=== PATIENT | male | born 1965 | race Caucasian/White ===

== ENCOUNTER 2019-09-17 19:37 | Inpatient (IN) | payer SELFPAY ==
[2019-09-17] MEDS ORDERED: Ondansetron PF 4 MG/2 ML Vial ONE ×2 (20:03→20:23)
[2019-09-17 20:08] LABS: Hemoglobin 14.7 g/dL (14.0-18.0); Mean Corpuscular HGB CONC 34.3 g/dL (32.0-36.0); Mean Corpuscular Hemoglobin 30.3 pg (27.0-31.0); Mean Corpuscular Volume 88.4 fL (78.0-98.0); Platelet Count 109 thou/uL (130-400); RBC Distribution Width 12.4 % (11.5-14.5); Red Blood Cell (RBC) Count 4.84 mill/uL (4.70-6.10); White Blood Cell (WBC) Count 12.2 thou/uL (4.8-10.8)
[2019-09-17 20:18] LABS: Band 22 % (5-11); Dohle Bodies SLIGHT; Lymphocytes 4 % (21-51); MDiff Complete? YES; Monocytes 6 % (0-10); Neutrophil 67 % (42-75); Platelet Morphology Comment Appears Decreased; RBC Morphology Normal; Reactive Lymphocytes 1 % (0-10); Toxic Granulation SLIGHT; Vacuoles SLIGHT
[2019-09-17 20:20] LABS: Bacteria/HPF 3+ HPF (None Seen); Bilirubin Negative (Negative); Blood, Urine 2+ (Negative); Clarity Turbid (Clear); Glucose, Urine (Dipstick) 50 mg/dL (Negative); Leukocyte 250 Leu/uL (Negative); Nitrite Negative (Negative); Protein, Urine (Dipstick) 100 mg/dL (Neg-Trace); RBC/HPF 0-3 HPF (0-3); Squamous Epithelial 0-3 HPF (0-3); Urobilinogen Normal mg/dL (Less than 2); WBC/HPF Greater than 50 HPF (0-3)
[2019-09-17 20:22] LABS: ALT (SGPT) 49 U/L (8-55); AST (SGOT) 54 U/L (5-34); Albumin 3.5 g/dL (3.5-5.0); Alkaline Phosphatase 98 U/L (40-110); Anion Gap 17 mmol/L (10-20); BUN (Urea Nitrogen) 58 mg/dL (8.4-25.7); Calc. Creatinine Clearance 0 mL/min (70-130); Calcium 8.7 mg/dL (7.8-10.44); Carbon Dioxide 21 mmol/L (22-29); Chloride 93 mmol/L (98-107); Estimated GFR-MDRD 18; Globulin 3.7 g/dL (2.4-3.5); Glucose 225 mg/dL (70-105); Potassium 3.6 mmol/L (3.5-5.1); Protein, Total 7.2 g/dL (6.0-8.3); Sodium 127 mmol/L (136-145)
[2019-09-17] MEDS ORDERED: Acetaminophen 500 MG TAB ONE (20:34)
--- NOTE | 2019-09-17 21:39 | RAD ---
ONE VIEW CHEST: 09/17/19 HISTORY: Abdominal pain and gastroesophageal reflux. COMPARISON: None available. FINDINGS: The cardiac silhouette is magnified by projection. There is increased density seen in a left paramed iastinal location which could be related to tortuosity of the thoracic aorta, but CT thorax is recomm ended for further evaluation of this finding. Pulmonary vasculature is within normal limits and the l ungs are clear. Degenerative changes are seen in the spine. IMPRESSION: Increased density seen within the left paramediastinal location which overlies the region of the thor acic aorta. This could be related to tortuosity of the thoracic aorta, but a paramediastinal mass le cierra could not be entirely excluded. CT scan thorax with IV contrast is recommended for further evalu ation. POS: [facility]
--- NOTE | 2019-09-17 23:07 | CT ---
NONCONTRAST CT ABDOMEN AND PELVIS: 09/17/19 HISTORY: Four days of nausea with abdominal pain in lower quadrants. COMPARISON: None. FINDINGS: There is moderate right hydronephrosis with a calculus in the region of the right UPJ which measures 12 mm x 7 mm. There is adjacent perinephric stranding on the right. No left renal or ureteral calculu s is seen. The urinary bladder is decompressed, but otherwise grossly normal in appearance. Dependent atelectasis is present at each lung base. Lack of intravenous contrast limits sensitivity for evaluation of the parenchymal organs. However, th e spleen, pancreas, and bilateral adrenal glands as well as left kidney demonstrate a grossly normal nonenhanced CT appearance. The liver is enlarged measuring at least 19 cm in craniocaudal dimensions but otherwise demonstrates a grossly normal nonenhanced CT appearance. The appendix is visualized and normal in caliber. Loops of small bowel are also normal in caliber. Degenerative changes are seen in the spine. There is a wedge shaped compression fracture involving T1 2 vertebral body of indeterminate age with approximately 50% loss of height anteriorly. There trace g rade I anterolisthesis of L4 on L5 related to prominent facet hypertrophic changes. IMPRESSION: 1. Obstructing right UPJ calculus measuring 12 mm x 7 mm with resultant moderate hydronephrosis and right perinephric stranding. 2. Mild hepatomegaly. POS: [facility]
[2019-09-17] MEDS ORDERED: Acetaminophen 325 MG TAB PO PRN (23:39)
[2019-09-18 00:06] LABS: Hemoglobin A1c 6.8 % (4.0-6.0)
[2019-09-18 00:19] LABS: INR-International Normal Ratio 1.4; PTT 37.8 SEC (22.9-36.1); Prothrombin Time 16.7 SEC (12.0-14.7)
[2019-09-18] MEDS ORDERED: HumaLOG 300 UNITS/3 ML VIAL SC PRN (01:20)
[2019-09-18] MEDS ORDERED: Dextrose 5% in Water 1,000 ML IV PRN (01:20)
[2019-09-18] MEDS ORDERED: Dextrose 50% Abboject 50 ML SYRINGE SLOW IVP PRN (01:20)
[2019-09-18 01:33] VITALS: BMI 33.5
[2019-09-18] MEDS: Sodium Chloride 0.9% 1,000 ML IV SCH ×4 (01:51→23:39)
[2019-09-18] MEDS: cefTRIAXone\\ROCEPHIN 2 GM in Sodium Chloride 0.9% 100 ML IVPB SCH ×2 (01:58→23:52)
[2019-09-18] MEDS ORDERED: Vancomycin 1.5 GRAM/300 ML BAG 1.5 GM in Premix Bag 1 BAG IVPB SCH (02:15)
--- NOTE | 2019-09-18 02:57 | PDOC.FPRHP ---
- History of Present Illness Chief Complaint: ESRD, N/V History of Present Illness: Pt is a 53 yo male without significant PMH who presents with a few day history of difficulty urinating, decreased urination, nausea, diarrhea, chills w/o fever. He states he is unsure what precipitated his symptoms so he decided to be seen in the emergency department. He also endorsed a decreased appetite but was continue PO intake, 1 L of water per day. He denied abdominal, back, flank pain. He took tylenol for his fever. He does normally drink 3-4 sodas per day. Difficult to obtain story even with sliver cutter as pt is poor historian, does not elaborate. He has no PCP. ED Course: In the emergency department pt was found to be fevrile, tachycardic in sepsis. CT scan revealed a R stone obstructing the ureter, creatinine of 3.53, BUN 58. UA had bacteria, WBC's, protein, and blood. Lactic wnl. - Allergies/Adverse Reactions Allergies Allergy/AdvReac Type Severity Reaction Status Date / Time No Known Allergies Allergy Verified 09/18/19 01:29 - Home Medications Medication Instructions Recorded Confirmed Type No Known 09/18/19 09/18/19 History - History PMHx: none PSHx: none FHx: none Social: drinks 3 beers daily, no drug use, no tobacco - Review of Systems General: reports: fever/chills, weight/appetite/sleep changes ENT: denies: nasal congestion, rhinorrhea Respiratory: reports: shortness of breath. denies: cough, congestion Cardiovascular: denies: chest pain, palpitation, edema Gastrointestinal: reports: diarrhea. denies: nausea, vomiting, constipation Genitourinary: reports: polyuria. denies: incontinence, dysuria Skin: denies: rashes, lesions Neurological: denies: numbness, syncope - Vital signs BP: 121/72 HR: 122 -> 94 RR: 20 Tmax: 102.8 Pox: 96% on RA Wt: 72.6 kg - Physical Exam Constitutional: NAD, awake, alert and oriented Neck: FROM, trachea midline Heart: RRR, normal S1/S2, no edema Lungs: CTAB, no respiratory distress, good air movement, no wheezing Abdomen: soft, non-tender, bowel sounds present, no masses/distention -Abdomen: CVA tenderness right Neurological: no focal deficit, CN II-XII intact Skin: no rash/lesions Heme/Lymphatic: no unusual bruising or bleeding, no purpura, no petechia Psychiatric: normal mood and affect, good judgment and insight FMR H&P: Results - Labs Result Diagrams: 09/18/19 03:39 09/18/19 03:39 Lab results: WBC 12.2 thou/uL (4.8-10.8) H 09/17/19 19:52 Hgb 14.7 g/dL (14.0-18.0) 09/17/19 19:52 Hct 42.8 % (42.0-52.0) 09/17/19 19:52 MCV 88.4 fL (78.0-98.0) 09/17/19 19:52 Plt Count 109 thou/uL (130-400) L 09/17/19 19:52 Band Neuts % (Manual) 22 % (5-11) H 09/17/19 19:52 Sodium 127 mmol/L (136-145) L 09/17/19 19:52 Potassium 3.6 mmol/L (3.5-5.1) 09/17/19 19:52 Chloride 93 mmol/L (98-107) L 09/17/19 19:52 Carbon Dioxide 21 mmol/L (22-29) L 09/17/19 19:52 BUN 58 mg/dL (8.4-25.7) H 09/17/19 19:52 Creatinine 3.53 mg/dL (0.7-1.3) H 09/17/19 19:52 Glucose 225 mg/dL (70-105) H 09/17/19 19:52 Lactic Acid 1.6 mmol/L (0.5-2.2) 09/17/19 20:45 Calcium 8.7 mg/dL (7.8-10.44) 09/17/19 19:52 Total Bilirubin 1.0 mg/dL (0.2-1.2) 09/17/19 19:52 AST 54 U/L (5-34) H 09/17/19 19:52 ALT 49 U/L (8-55) 09/17/19 19:52 Alkaline Phosphatase 98 U/L (40-110) 09/17/19 19:52 Serum Total Protein 7.2 g/dL (6.0-8.3) 09/17/19 19:52 Albumin 3.5 g/dL (3.5-5.0) 09/17/19 19:52 Urine Ketones Negative mg/dL (Negative) 09/17/19 20:00 Urine Blood 2+ (Negative) A 09/17/19 20:00 Urine Nitrite Negative (Negative) 09/17/19 20:00 Ur Leukocyte Esterase 250 Gemma/uL (Negative) A 09/17/19 20:00 Urine RBC 0-3 HPF (0-3) 09/17/19 20:00 Urine WBC Greater than 50 HPF (0-3) A 09/17/19 20:00 Ur Squamous Epith Cells 0-3 HPF (0-3) 09/17/19 20:00 Urine Bacteria 3+ HPF (None Seen) A 09/17/19 20:00 - EKG Interpretation EKG: NSR, L atrial enlargement, incomplete R BBB - Radiology Interpretation Chest x-ray Status: report reviewed by me (Increased density L paramediastinum - recommend ct follow up) CT scan - abdomen Status: report reviewed by me (12 mm X 7 mm right UPJ calculus with moderate hydronephrosis and perinephric stranding) FMR H&P: A/P - Problem List (1) Incomplete RBBB Current Visit: Yes Status: Acute Code(s): I45.10 - UNSPECIFIED RIGHT BUNDLE- BRANCH BLOCK (2) Sepsis Current Visit: Yes Status: Acute Code(s): A41.9 - SEPSIS, UNSPECIFIED ORGANISM Qualifiers: Severe sepsis acute organ dysfunction type: acute renal failure (3) Nephrolithiasis Current Visit: Yes Status: Acute (4) Acute kidney failure Current Visit: Yes Status: Acute - Plan Pt is a 53 yo without primary care follow up/no significant PMH who presents for sepsis 2/2 nephrolithiasis: # Nephrolithiasis # Sepsis - fever, tachycardia # LINDA CT abdomen revealed a stone obstructing R kidney cause hydronephrosis. Creatinine 3.53, BUN 58 - tylenol prn pain - Urology consulted, switched abx to ceftriaxone, vanc. Will see pt in am and take for stone removal. Appreciate rec's. - Nephro consult, call in am - Fluids 150 mls/hr # Hyponatremia Na 127 - pending urine Na, urine creatinine # L Paramediastinal Density - needs follow up with CT scan when kidneys can handle contrast - pulm consult, call in am # Elevated BG - a1c pending # Needs PCP Diet: NPO Fluids: NS 150 mls/hr VTE SCDs Code: Full Dispo: > 2 day stay, CU FMR H&P: Upper Level - Plan Date/Time: 09/18/19 0257 IPlacido MD, have evaluated this patient and agree with findings/plan as outlined by property management intern resident. Pertinent changes/additions are listed here. Oswaldo Eugene is a 53 year old M with no known PMH who presented to the ED with a 4 day history of nausea, increased urinary frequency and dysuria. Associated fever, chills. Denies any abdominal pain. No history of UTI. Symptoms have been constant and he had not tried any intervention to improve symptoms. He has not seen a doctor in many years and takes no medications. When he arrives to the ED, he was febrile with Tmax of 102.2, HR got as high as 122, BP 111/63, O2 sat 96% on RA, RR 18. Labs were significant for UA with 250 leuks, nitrite neg, >50 WBC, 2+ blood, 3+ bacteria. Lactic acid 1.6, WBC 12.2 with 22% bands, BUN 58, Cr 3.53, Na 127, K 3.6, Gluc 225. EKG showed NSR with incomplete RBBB. CXR showed increased density in the left paramediastinal location recommending CT chest with contrast to r/o mass. CT abd stone protocol showed 12 mm X 7 mm right UPJ calculus with moderate hydronephrosis and perinephric stranding, no other stones. In the ED, pt was given 2 L NS, IV Levaquin, tylenol, zofran. IVFs and tylenol normalized vitals in ED. On exam, pt was nontoxic, abdomen soft NT, but he did have R CVAT, lungs CTAB, cardiac RRR no murmurs. Pt met sepsis criteria initially in ED with elevated WBC count , tachycardia and fever. Admitting patient to IMCU for close monitoring due to sepsis 2/2 complicated UTI. Starting rocephin and vancomycin. Consulted Dr. Vega upon admission, who stated that she will put patient on OR schedule for morning for stone extraction and possible stent placement. Recommended IVFs NS @ 150 ml/hr. Holding anticoagulation until after procedure. Zofran for nausea. IVFs for hyponatremia. Low Na likely 2/2 kidney injury, will check Ur Na and Ur Osm to r/o alternative causes. If patient shows improvement in terms of kidney function during this stay, will consider CT with IV contrast to work up paramediastinal density seen on CXR. Anticipate LINDA to improve after stone extraction. Anticipate hospital stay > 48 hours. Please see property management intern note above for full H&P, which I have reviewed and agree with. Addendum - Attending - Attending Attestation Date/Time: 09/18/19 0603 I personally evaluated the patient and discussed the management with Dr. Saldana I agree with the History, Examination, Assessment and Plan documented above with any addition or exceptions noted below - 53 yo male with no significant history presented with 4 day h/o nausea, abdominal pain and difficulty urinating. Denies fever/chills. Endorses decreased appetite. PMH/PSH/Meds/SH reviewed and agree with resident's documentation. T 102.8 (in ER) Tn99.5 P90 BP 110/72 RR17 100% RA Exam repeated by me and agree with resident's findings. Labs: WBC=12.2, H/H=14.7/42.8, Ulk=098, Diff- 67N/22B/4L, Gp=701, K= 3.6, Cl=93, Co2=21, BUN/Cr=58/3.53, Ggbk=795, lactic acid=1.6, AST/ALT=54/49, U/ A- 100 prot, 2+ blood, (+)Leuk est, WBC>50, 3+bact; CT abd- mod R hydronehrosis with calculus at R UPJ; adjacent perinehric stranding, calculus 12x7mm. A/P: 1) Sepsis secondary to complicated UTI - admit to IMCU; continue IVF and abx; blood and urine cultures pending, 2) Obstructing urinary calculus - urology consulted and plans for procedure in AM; appreciate assistance with patient; 3) Acute renal failure most likely secondary to post-obstructive uropathy - continue IVF and monitor renal function; nephrology consulted. 4) Hyperglycemia - random glucose>200- consistent with newly diagnosed DM- monitor accuchecks; will need diabetic education
[2019-09-18 04:15] LABS: ALT (SGPT) 44 U/L (8-55); AST (SGOT) 48 U/L (5-34); Albumin 2.8 g/dL (3.5-5.0); Alkaline Phosphatase 81 U/L (40-110); Anion Gap 14 mmol/L (10-20); BUN (Urea Nitrogen) 56 mg/dL (8.4-25.7); Bilirubin, Total 0.6 mg/dL (0.2-1.2); Calc. Creatinine Clearance 35 mL/min (70-130); Calcium 7.5 mg/dL (7.8-10.44); Carbon Dioxide 19 mmol/L (22-29); Chloride 99 mmol/L (98-107); Estimated GFR-MDRD 22; Glucose 185 mg/dL (70-105); Potassium 3.6 mmol/L (3.5-5.1); Protein, Total 5.8 g/dL (6.0-8.3); Sodium 128 mmol/L (136-145)
[2019-09-18 05:44] LABS: Band 11 % (5-11); Hemoglobin 12.5 g/dL (14.0-18.0); Lymphocytes 13 % (21-51); MDiff Complete? YES; Mean Corpuscular HGB CONC 34.4 g/dL (32.0-36.0); Mean Corpuscular Hemoglobin 30.8 pg (27.0-31.0); Mean Corpuscular Volume 89.6 fL (78.0-98.0); Mean Platelet Volume 10.2 fL (7.4-10.4); Monocytes 2 % (0-10); Neutrophil 74 % (42-75); Platelet Count 80 thou/uL (130-400); Platelet Morphology Comment Appears Decreased; RBC Distribution Width 12.4 % (11.5-14.5); Red Blood Cell (RBC) Count 4.07 mill/uL (4.70-6.10); White Blood Cell (WBC) Count 8.5 thou/uL (4.8-10.8)
--- NOTE | 2019-09-18 06:00 | PDOC.FM ---
- Subjective Subjective: Pt states he had some abd pain overnight in lower quadrant. Denies N/V. - Objective MAR Reviewed: Yes Vital Signs & Weight: Vital Signs (12 hours) Temp 09/18/19 04:02 98.4 F 09/18/19 01:14 99.5 F Weight Weight 85.82 kg Most Recent Monitor Data Heart Rate from ECG 86 NIBP 104/58 NIBP BP-Mean 73 Respiration from ECG 23 SpO2 100 I&O: 09/16/19 09/17/19 09/18/19 06:59 06:59 06:59 Intake Total 769 Output Total 750 Balance 19 Result Diagrams: 09/18/19 03:39 09/18/19 03:39 Phys Exam - Physical Examination Constitutional: NAD HEENT: moist MMs, sclera anicteric Neck: no JVD, full ROM Respiratory: no wheezing, no rales, no rhonchi, clear to auscultation bilateral Cardiovascular: RRR, no rub Gastrointestinal: soft, positive bowel sounds R CVA T. Musculoskeletal: no edema, pulses present Neurological: non-focal, moves all 4 limbs Psychiatric: normal affect, A&O x 3 Skin: no rash, normal turgor, cap refill <2 seconds Dx/Plan (1) Sepsis Code(s): A41.9 - SEPSIS, UNSPECIFIED ORGANISM Status: Acute Qualifiers: Severe sepsis acute organ dysfunction type: acute renal failure (2) Pyelonephritis Code(s): N12 - TUBULO-INTERSTITIAL NEPHRITIS, NOT SPCF ACUTE OR CHRONIC Status: Acute (3) Hydronephrosis due to obstruction of ureter Code(s): N13.2 - HYDRONEPHROSIS WITH RENAL AND URETERAL CALCULOUS OBSTRUCTION Status: Acute (4) Acute kidney failure Status: Acute (5) Incomplete RBBB Code(s): I45.10 - UNSPECIFIED RIGHT BUNDLE-BRANCH BLOCK Status: Acute (6) Nephrolithiasis Status: Acute - Plan Plan: Pt is a 53 yo without primary care follow up/no known PMH who presents for sepsis 2/2 nephrolithiasis: # Nephrolithiasis - Right UPJ calculis 12 X 7 mm size - Urology consulted, appreciate recommendations # Sepsis 2/2 complicated UTI/pyelonephritis - fever, tachycardia #Pyelonephritis - R CVA T - Evidence of large obstructing stone on R UPJ, possible septic stone. # LINDA CT abdomen revealed a stone obstructing R kidney cause hydronephrosis. Creatinine 3.53, BUN 58 - tylenol prn pain - Urology consulted, switched abx to ceftriaxone, vanc. Will see pt in am and take for stone removal. Appreciate rec's. 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 Once renal function improves will order CT w contrast of chest. # L Paramediastinal Density - needs follow up with CT scan when kidneys can handle contrast - pulm consult, as pt in IMCU. Likely to transfer out of IMCU once stone extracted. # Elevated BG, new diagnosis of DM II - a1c 6.8, new diagnosis of DM - Will discuss addition of metformin if pt's LINDA resolves before admission. - ACHS accuchecks, mild SSI # Needs PCP Diet: NPO Fluids: NS 150 mls/hr VTE SCDs Code: Full Dispo: > 2 day stay, CU
--- NOTE | 2019-09-18 07:53 | RAD ---
Abdomen one view HISTORY: Renal stone. COMPARISON: CT 09/17/2019. FINDINGS: Large amount of gas throughout the bowel obscures renal outlines. A very subtle vertically oriented oval opacity lateral to the L2-3 disc space is in the expected location of the right UPJ calculus on recent CT, although the relative density is not significantly different from the surround ing soft tissues, and this cannot be confidently designated as the obstructing stone. Dystrophic calcification within the right lateral abdomen. Degenerative changes lumbar spine and hips . IMPRESSION: Right ureteropelvic junction calculus, while possibly visualized on this exam, cannot be confidently localized.
--- NOTE | 2019-09-18 08:00 | RAD ---
XR Chest 1 View HISTORY: Preoperative chest x-ray COMPARISON: Previous day FINDINGS: The heart is prominent but stable. Increased density in the left paramediastinal location i s again seen and should be evaluated with a contrast-enhanced CT scan. No lobar consolidation, pneumothoraces or pleural effusions are seen.
--- NOTE | 2019-09-18 08:05 | CON ---
DATE OF CONSULTATION: 09/18/2019 REASON FOR CONSULT: Right proximal ureteral calculi, renal insufficiency. REFERRING: Family Medicine Service. HISTORY OF PRESENT ILLNESS: Mr. Cj Eugene is a 53-year-old male, minimally Swiss-speaking, who presented to the emergency room with few day history of dysuria, nausea, chills without fever. The patient's history is obtained with an production utility worker via teleprompter. He denies prior history of kidney stones, prior history of difficulty urinating. Over the last few days, he has had dysuria and somewhat having hesitancy. He denies sensation of incomplete void or prior history of urinary retention. His workup in the emergency room demonstrated renal insufficiency, UA positive for bacteria, CT demonstrating a large right proximal ureteral stone. He was provided broad-spectrum antibiotic therapy with Levaquin , vancomycin, Rocephin. With fluids, his fever resolved, and he has remained stable with hemodynamic parameters unremarkable. He denies chest pain or shortness of breath. He had remote history of hematuria about 6 months ago. He works in construction and lawn work, is still in [place]. He lives in [place] in a trailer. PAST MEDICAL HISTORY: Denies. PAST SURGICAL HISTORY: None. FAMILY HISTORY: None pertinent. SOCIAL HISTORY: Three beers daily. Denies illicit drugs or tobacco abuse. REVIEW OF SYSTEMS: Ten-point review of systems as above, otherwise noncontributory. ALLERGIES: NO KNOWN DRUG ALLERGIES. PHYSICAL EXAMINATION: VITAL SIGNS: T-max of 102, T-current is 98, blood pressure is 102/70, and heart rate 86. I's and O's; 769 in, 750 out. GENERAL: The patient is in no acute distress. HEENT: Grossly unremarkable. HEART: Regular rate. LUNGS: Clear. ABDOMEN: Soft. No rigidity. No rebound. No significant tenderness is appreciated. GENITOURINARY: Demonstrates uncircumcised phallus. Meatus is unremarkable. Testes are descended with no evidence of intratesticular mass. EVER demonstrates no discrete nodularity, volume about 40 g with no induration. EXTREMITIES: No cyanosis, clubbing, or edema. PSYCHIATRIC: Appears to be appropriate and intact. NEUROLOGIC: No gross focal deficits. PERTINENT LABS AND IMAGING: He presented with a white count of 12, 22 bands. This morning with antibiotics, his white count has decreased to 8 with resolution of bandemia. His platelet on admission is 109, this morning is 80. Hemoglobin is 12. INR 1.4, PTT of 37.8. Sodium is 128, BUN 56, creatinine 2.9 this morning, on arrival 3.5, and blood sugar 255. Hemoglobin A1c 6.8. AST is mildly elevated at 54, decreased to 48 this morning. His lactic acid is within normal limits. UA demonstrates pH of 5.5, 100 of protein, 250 of leukocytes, negative nitrites, 50 glucose, 0 to 3 epithelials, and 3+ bacteria. Blood culture and urine culture are pending. CT of the abdomen and pelvis, which I reviewed myself, demonstrates right hydronephrosis with a large stone in the right proximal ureter just distal to the UPJ measuring 12 mm x 7 mm x 1.6 cm in craniocaudal dimension. Per my review, Hounsfield unit of the stone is [address] prostate volume is 45 g. DJD of the spine, which showed compression of T12. Mild hepatomegaly. Chest x-ray demonstrates increased density seen in the left paramediastinal location may be due to tortuosity of the thoracic aorta, mass cannot be completely excluded. Recommend CT of the thorax. EKG demonstrating right bundle-branch block. IMPRESSION: 1. Mr. Cj Eugene is a 53-year-old male, presented with few day history of nausea, vomiting, chills with recent onset of dysuria, in which he denies prior history of urinary retention. CT demonstrating a large proximal ureteral calculi, possibility of uric acid stone moiety. 2. Leukocytosis, bandemia, resolved with antibiotic therapy. 3. Thrombocytopenia. 4. Right bundle-branch block. 5. Indeterminate possible density in the left paramediastinal location on chest x-ray. RECOMMENDATIONS: patient is n.p.o. for cysto, right stent placement, I informed the patient if I am unable to stent nephrostomy tube as indicated, uric acid has been obtained, based on urine pH in Hounsfield unit of the ureteral calculi. Recommend a Cardiology consult due to history of right bundle-branch block as he will require further surgical intervention, i.e., ureteroscopy, laser lithotripsy. 2. Hyponatremia may be due to increase water consumption, which has been over the last few days. However, needs to be monitored. 3. Acute renal insufficiency, multifactorial. Continue broad-spectrum antibiotic therapy. The patient will need to be monitored until cultures have been finalized for appropriate targeted antibiotic therapy. The patient has been fully informed regarding importance of followup with me to proceed with stone treatment for definitive treatment at a later date. Case Management consult advised. Job ID: [id number] MTDD
[2019-09-18] MEDS: Ondansetron PF 4 MG/2 ML Vial IVP PRN ×3 (08:41→23:52)
[2019-09-18] MEDS ORDERED: Vancomycin HCl 1 GM in Sodium Chloride 0.9% 250 ML 300 ML IVPB SCH (09:00)
[2019-09-18] MEDS ORDERED: FLU VACC QS2019-20(6MOS UP)/PF 60 MCG/0.5 ML SYRINGE IM ONE (09:00)
[2019-09-18] MEDS ORDERED: Levofloxacin 500 mg/D5W 100 ml Premix Bag ONE (10:09)
[2019-09-18] MEDS ORDERED: Lidocaine 1% PF 5 ML VIAL ONE (10:13)
[2019-09-18] MEDS ORDERED: PROPOFOL 200 MG/20 ML VIAL ONE (10:13)
[2019-09-18] MEDS ORDERED: Fentanyl 100 MCG/2 ML VIAL ONE ×2 (10:49→11:31)
[2019-09-18] MEDS ORDERED: Iothalamate Meglumine 60% 50 ML VIAL FS ONE (10:55)
[2019-09-18] MEDS ORDERED: Phenazopyridine HCl 97.5 MG TABLET PO PRN (11:26)
[2019-09-18] MEDS ORDERED: Morphine 4 MG/ML VIAL SLOW IVP PRN (11:26)
[2019-09-18] MEDS ORDERED: Acetaminophen 500 MG TAB PO PRN (11:26)
[2019-09-18] MEDS ORDERED: Morphine 2 MG/ML SYRINGE SLOW IVP PRN (11:26)
[2019-09-18] MEDS ORDERED: HYDROcodone/Acetaminophen 5/325 mg Tablet PO PRN ×2 (11:26)
[2019-09-18] MEDS ORDERED: Bisacodyl 10 MG SUPP PR PRN (11:26)
--- NOTE | 2019-09-18 11:33 | RAD ---
Retrograde ureterogram intraoperative fluoroscopy HISTORY: Obstructing right UPJ calculus FINDINGS: Intraoperative fluoroscopy was provided for retrograde study as performed by Dr. Judith culver. Spot fluoroscopic images show catheterization and opacification of the right ureter. There is sequential placement of a guidewire and a double-pigtail right ureteral stent, and good radiographic position.
--- NOTE | 2019-09-18 11:35 | HP ---
CHIEF COMPLAINT: Fever, chills, and flank pain. COMMENT: I have examined the patient. I have discussed the case with Dr. Saldana and with Dr. Kacy Morrison and agree with her assessment and plan. HISTORY OF PRESENT ILLNESS: Briefly, Mr. Cj Eugene is a 53-year-old male, who does not speak Libyan. He states he has had a several day history of difficulty urinating, decreased urination, nausea, and chills with fever. He presented to the ER, where he was noted to have an obstructing ureteral calculus on the right side with hydronephrosis. He also had evidence of pyelonephritis. He was admitted, started on broad-spectrum antibiotics and Urology has been consulted. PHYSICAL EXAMINATION: VITAL SIGNS: His blood pressure was 120/70, his heart rate is 90, initial temperature is 102.8, and his room air pulse ox is 96%. GENERAL: Mr. Eugene is awake and alert, in no acute distress. EAR, NOSE, AND THROAT: No erythema or exudate. NECK: Supple. CARDIAC: Heart rhythm is regular without gallop or murmur noted. ABDOMEN: Flat and soft without guarding, rebound, or rigidity. He has some right CVA tenderness. NEUROLOGIC: No focal deficits. LABORATORY DATA: His CBC shows a white count of 12,200, hemoglobin is 14.7, hematocrit is 42.8 with an MCV of 88. Chemistries; sodium was initially 127, potassium 3.6, chloride 93, bicarb 21, BUN 58, creatinine 3.53, and a random glucose of 225. His A1c is 6.8, consistent with a new diagnosis of type 2 diabetes. Liver enzymes, his AST was slightly elevated to 54, ALT normal at 49. Total bilirubin was 1. Urinalysis showed 2+ blood, 250 on the leukocyte esterase, greater than 50 white cells per high-power field, negative nitrites. CAT scan of the abdomen and pelvis showed an obstructing right UPJ calculus measuring 12 mm x 7 mm with resultant moderate hydronephrosis and right perinephric stranding. He also had mild hepatomegaly. ASSESSMENT: Acute pyelonephritis with ureteral calculus on the right side. PLAN: Admit broad-spectrum antibiotics. Consult Urology. Job ID: [id number]
[2019-09-18] MEDS ORDERED: Ondansetron PF 4 MG/2 ML Vial ONE (11:47)
[2019-09-18] MEDS ORDERED: Promethazine HCl 25 MG/ML VIAL IM PRN (12:01)
[2019-09-18] MEDS ORDERED: Promethazine HCl 25 MG/ML VIAL SLOW IVP PRN (12:01)
[2019-09-18] MEDS ORDERED: Ondansetron HCl/PF 4 MG/2 ML Vial IVP PRN (12:01)
--- NOTE | 2019-09-18 12:26 | OP ---
DATE OF PROCEDURE: 09/18/2019 PREOPERATIVE DIAGNOSIS: Right proximal ureteral UJP stone measuring 1.6 x 1.2 x 7 mm. POSTOPERATIVE DIAGNOSIS: Right proximal ureteral UJP stone measuring 1.6 x 1.2 x 7 mm. PROCEDURES PERFORMED: Cystoscopy, right retrograde, 6 x 26 double-J ureteral stent with distal tail in situ, Cruz catheter placement. ANESTHESIA: LMA. COMPLICATIONS: None apparent. DISPOSITION: To recovery room in stable condition. INTRAOPERATIVE FINDINGS: 1. 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 2. No significant BPH. 3. Bladder grossly unremarkable. 4. High-grade right proximal ureteral obstruction due to large ureteral calculi. INDICATIONS FOR THE PROCEDURE AND HISTORY: Mr. Corona is a 53-year-old male. Subjectively, he states that he has no past medical history, presented with renal insufficiency, fever, obstructing right ureteral stone. He presents for ureteral stent placement. If unable to place a stent, he has been fully informed regarding indications for nephrostomy tube placement. Risks and complications and indications reviewed including bleeding, pain, infection, urosepsis. Questions encouraged to his satisfaction and desired to proceed. DESCRIPTION OF PROCEDURE: After an informed consent was signed, the patient was taken to the operating room, placed in a dorsal lithotomy position with the genital area prepped and draped in the usual surgical sterile fashion. A 21-Albanian cystoscope was utilized for cystoscopy, which demonstrated incidental wide caliber annular strictures in the bulbar proximal urethra. However, these are nonobstructing, early in its presentation and moreover nonobstructing as I was able to pass the scope without significant issues. Prostatic urethra demonstrated no evidence of obstruction. Bladder was entered, which demonstrated some debris. The UOs were in normal position. An open-ended catheter was utilized to intubate the right UO, and the catheter was placed to the level of the stone, which was faintly radiopaque. I was unable to place a wire into the upper collecting system due to high-grade obstruction. Therefore, we gently performed a retrograde pyelogram. Assessing the UPJ region, I was able to inject contrast and opacify the calices. Subsequently, a 0.35 Sensor wire was gently negotiated into the right upper pole. A 6 x 26 double-J ureteral stent was passed. There was some resistance, however able to pass obstruction with adequate placement of the ureteral stent. He tolerated the procedure well. A 16-Albanian Cruz catheter was placed without significant issues, attached to gravity bag. He will be transitioned back to the [facility] and monitored clinically with broad-spectrum antibiotics until culture was finalized. As his uric acid is elevated to 8.6, will initiate allopurinol. Job ID: [id number] [facility]
[2019-09-18] MEDS: HumaLOG 300 UNITS/3 ML VIAL SC PRN (17:04)
[2019-09-18] MEDS: Docusate 100 MG CAP PO SCH (20:15)
[2019-09-18] MEDS ORDERED: Famotidine/PF 20 mg/2ml Vial SLOW IVP SCH (21:00)
[2019-09-19 04:29] LABS: Anion Gap 11 mmol/L (10-20); BUN (Urea Nitrogen) 52 mg/dL (8.4-25.7); Calc. Creatinine Clearance 43 mL/min (70-130); Calcium 7.2 mg/dL (7.8-10.44); Carbon Dioxide 18 mmol/L (22-29); Chloride 105 mmol/L (98-107); Estimated GFR-MDRD 28; Glucose 144 mg/dL (70-105); Potassium 3.3 mmol/L (3.5-5.1); Sodium 131 mmol/L (136-145)
[2019-09-19 04:30] LABS: Vancomycin, Random 9.5 ug/mL (See Comment)
[2019-09-19 04:54] LABS: Band 15 % (5-11); Lymphocytes 12 % (21-51); MDiff Complete? YES; Mean Corpuscular HGB CONC 33.1 g/dL (32.0-36.0); Mean Corpuscular Hemoglobin 29.8 pg (27.0-31.0); Mean Corpuscular Volume 89.8 fL (78.0-98.0); Mean Platelet Volume 10.4 fL (7.4-10.4); Monocytes 4 % (0-10); Neutrophil 69 % (42-75); Platelet Count 91 thou/uL (130-400); Platelet Morphology Comment Appears Decreased; RBC Distribution Width 12.5 % (11.5-14.5); Red Blood Cell (RBC) Count 4.02 mill/uL (4.70-6.10); Toxic Granulation SLIGHT; White Blood Cell (WBC) Count 7.8 thou/uL (4.8-10.8)
[2019-09-19] MEDS: Sodium Chloride 0.9% 1,000 ML IV SCH ×2 (05:33→17:18)
[2019-09-19] MEDS ORDERED: Vancomycin HCl 750 MG in Sodium Chloride 0.9% 250 ML 250 ML IVPB SCH (06:00)
--- NOTE | 2019-09-19 06:41 | PDOC.FM ---
- Subjective Subjective: Pt reports N/V overnight, lary tis slightly improved this morning. Denies any further abd pain, or flank plain. Cruz cath in place. Good urine output. No acute overnight events. - Objective MAR Reviewed: Yes Vital Signs & Weight: Vital Signs (12 hours) Temp Pulse Resp BP Pulse Ox 09/19/19 04:24 98.8 F 68 16 101/63 98 09/19/19 04:00 98.8 F 68 16 101/63 98 09/19/19 00:12 100.5 F H 79 18 101/66 97 09/19/19 00:00 100.5 F H 101/66 97 09/18/19 20:00 97.6 F 85 18 100/65 98 09/18/19 19:30 97.6 F 85 18 100/65 98 Weight Admit Weight 85.82 kg Weight 85.82 kg Most Recent Monitor Data Heart Rate from ECG 83 NIBP 105/64 NIBP BP-Mean 77 Respiration from ECG 16 SpO2 96 I&O: 09/17/19 09/18/19 09/19/19 06:59 06:59 06:59 Intake Total 769 1300 Output Total 750 3500 Balance 19 -2200 Result Diagrams: 09/19/19 04:02 09/19/19 04:02 Phys Exam - Physical Examination Constitutional: NAD HEENT: moist MMs, sclera anicteric Neck: no nodes, full ROM Respiratory: no wheezing, no rales, no rhonchi, clear to auscultation bilateral Cardiovascular: RRR, no rub Gastrointestinal: soft, non-tender, no distention, positive bowel sounds Musculoskeletal: no edema Neurological: non-focal, moves all 4 limbs Psychiatric: normal affect, A&O x 3 Skin: no rash, normal turgor Dx/Plan (1) Sepsis Code(s): A41.9 - SEPSIS, UNSPECIFIED ORGANISM Status: Acute Qualifiers: Severe sepsis acute organ dysfunction type: acute renal failure (2) Pyelonephritis Code(s): N12 - TUBULO-INTERSTITIAL NEPHRITIS, NOT SPCF ACUTE OR CHRONIC Status: Acute (3) Hydronephrosis due to obstruction of ureter Code(s): N13.2 - HYDRONEPHROSIS WITH RENAL AND URETERAL CALCULOUS OBSTRUCTION Status: Acute (4) Acute kidney failure Status: Acute (5) Incomplete RBBB Code(s): I45.10 - UNSPECIFIED RIGHT BUNDLE-BRANCH BLOCK Status: Acute (6) Nephrolithiasis Status: Acute - Plan Plan: Pt is a 53 yo without primary care follow up/no known PMH who presents for sepsis 2/2 nephrolithiasis: # Nephrolithiasis - Right UPJ calculis 12 X 7 mm size - Urology consulted, appreciate recommendations: Started allopurinol as uric acid level 8.6 - Stent placed in R ureter 09/18/19. # Sepsis 2/2 complicated UTI/pyelonephritis, with bacteremia - fever, tachycardia #Pyelonephritis - R CVA T - Evidence of large obstructing stone on R UPJ, possible septic stone. - Blood ccx 2/2 gram negative rods - Continue IVF and vanc + rocephin. # LINDA, improving with stent placement and IVF CT abdomen revealed a stone obstructing R kidney cause hydronephrosis, LINDA likely from septic stone. Creatinine 3.53-> 2.4 BUN 58 - tylenol prn pain - Urology consulted, switched abx to ceftriaxone, vanc. Will see pt in am and take for stone removal. Appreciate rec's. 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 Once renal function improves will order CT w contrast of chest. # L Paramediastinal Density - needs follow up with CT scan when kidneys can handle contrast - pulm consult, as pt in IMCU. Likely to transfer out of IMCU once stone extracted. # Elevated BG, new diagnosis of DM II - a1c 6.8, new diagnosis of DM - Will discuss addition of metformin if pt's LINDA resolves before admission. - ACHS accuchecks, mild SSI # Needs PCP Diet: NPO Fluids: NS 150 mls/hr VTE SCDs Code: Full Dispo: > 2 day stay, [facility]
--- NOTE | 2019-09-19 08:32 | PRG ---
DATE OF SERVICE: 09/19/2019 SUBJECTIVE: The patient is feeling better. Denies fever or chills. No significant discomfort. PHYSICAL EXAMINATION: VITAL SIGNS: T-max of 100.5, T-current is 98.8, pulse 68, respiratory rate 16, oxygen saturation 98, and blood pressure 101/63. I's and O's are 1300 in, 3500 out. He is negative 2.2 L. Urine output demonstrates yellow cam urine with sediment. ABDOMEN: Soft, nontender, and nondistended. GENITOURINARY: Cruz catheter in place. LABORATORY DATA: White count decreased from 12 on admission to 7.8, hemoglobin 12, platelet is 91, and 15 bands. Admitting creatinine 3.5, this morning is 2.4. Urine culture pending. Blood culture, gram-negative teresa x2. The patient currently on Rocephin and Levaquin and vancomycin. IMPRESSION AND PLAN: Mr. Cj Eugene is a 53-year-old male, who presented with fever, acute renal insufficiency multifactorial, who presented with large right renal pelvic proximal ureteral stone measuring 1.2 x 1.6 x 7 mm postop day #1, status post cysto, right ureteral stent. The patient is hemodynamically stable. Discontinue Cruz catheter. Continue strict I's and O's. Recommend continuation of IV fluids, can discontinue vancomycin. His blood culture demonstrates gram- negative teresa. I do recommend the patient continue to receive Rocephin and Levaquin until final sensitivity is back. Continue Flomax. Recommend Cardiology consultation for right bundle-branch block. The patient has never seen a physician in the past. I cannot rule out occult cardiac comorbidities. Job ID: [id number] [facility]
[2019-09-19] MEDS: Allopurinol 100 MG TAB PO SCH (10:06)
[2019-09-19] MEDS: Tamsulosin HCl 0.4 MG CAP PO SCH (10:07)
[2019-09-19] MEDS: Docusate 100 MG CAP PO SCH ×2 (10:07→21:39)
--- NOTE | 2019-09-19 12:28 | PRG ---
DATE OF SERVICE: 09/19/2019 Mr. Eugene is resting quietly in bed this morning in no distress. He had a stent placed in his ureter yesterday per Urology. This morning, he is afebrile with a blood pressure 100/63. We will continue to follow with the urologist. We will continue him on Rocephin and Levaquin pending final culture results. Job ID: [id number]
--- NOTE | 2019-09-19 14:03 | CON ---
DATE OF CONSULTATION: 09/19/2019 REASON FOR CONSULTATION: Urosepsis with obstructive pyelonephritis. HISTORY OF PRESENT ILLNESS: A 53-year-old patient from [place], living in this area for the past 4 years, and for the past few months has noticed recurring pain in the left flank and left lower quadrant, which he managed by widg-tso-tzhqofg analgesic medication. He noticed recurrent episodes of nausea more recently, associated with fever and increased urinary frequency. He did not have any headaches. No visual symptoms, sore throat, odynophagia, or dysphagia. No cough or chest pain. No dyspnea. No back pain. No diarrhea. The patient had episodes of what he describes as hematuria, which have recurred over the past few months. MEDICAL HISTORY: He did not have any prior diagnosis, was not taking any medication before this admission other than mucl-gub-edizzti analgesia. SOCIAL HISTORY: He is from [place], he is , has a still there, and 3 children. He does not smoke. No alcoholic beverage use. Works with [employer] and lives in a trailer with some friends. ALLERGIES: NONE. CURRENT MEDICATION LIST: 1. P.r.n. medications. 2. [place]. 3. Zyloprim. 4. Dulcolax. 5. Ceftriaxone. 6. Pepcid. 7. Insulin. 8. Levofloxacin. 9. Tamsulosin. PHYSICAL EXAMINATION: VITAL SIGNS: T-max 100.5, blood pressure 92/55, pulse 75, respirations 20, and O2 saturation 99. SKIN: Not remarkable. The patient has an indwelling Cruz catheter after the urological procedure. HEENT: Ocular movements conjugate. No lymphadenopathy. Oral cavity normal. NECK: Supple. LUNGS: Symmetric. Clear breath sounds. HEART: S1 and S2. Regular rate. No S3 or S4. ABDOMEN: Soft with some zfob-ve-okpgynok tenderness in the left lower quadrant, some distention. Bowel sounds are present. No organomegaly. No bladder distention. EXTREMITIES: No joint inflammatory activity. Pulses 1+ in dorsalis pedis. Plantar responses are flexor. Strength in upper and lower extremities are preserved. NEUROLOGIC: Cognitive function appears to be intact. LABORATORY DATA: Sodium 131 and creatinine 2.4, which is down from admission when it was 3.53. Liver profile: AST 54, ALT 49, albumin 3.5, and globulin 3.7. Urinalysis with greater than 50 wbc's. Microbiology with Klebsiella and Enterobacter in 2 sets of blood cultures. No urine sample yet resulted. IMAGING STUDIES: Started with an abdomen and pelvis CT on admission with obstructing right UPJ calculus, measuring 1.2 cm x 7 mm. Moderate hydronephrosis and perinephric stranding. Chest x-ray with no findings of significance. ASSESSMENT: Nephrolithiasis with obstructive findings in the right side at the ureteropelvic junction status post stenting with obstructive pyelonephritis and bacteremia with Klebsiella/Enterobacter, pending susceptibility studies. The patient seems to have improved after intervention and we will see what the susceptibilities are and then plan discharge hopefully on oral antimicrobial therapy. Subsequently, the patient will need removal of the stone, which will require intervention due to the size most likely. Analysis of the stone and then measures to prevent recurrence indicated. We will check HIV and syphilis due to the epidemiological circumstances. Job ID: [id number]
[2019-09-19 14:32] LABS: HIV (1/2) Antibody/Antigen Non-Reactive (NonReactive); HIV 1/2 INDEX 0.13 S/CO (<1.00)
[2019-09-19 14:40] LABS: Syphilis Antibody Nonreactive (Nonreactive); Syphilis Antibody Index 0.05 S/CO (<1.00 Non-Reactive)
--- NOTE | 2019-09-19 16:07 | CON ---
DATE OF CONSULTATION: 09/19/2019 INDICATION FOR CONSULTATION: A 53-year-old gentleman with nephrolithiasis, who may need to undergo further intervention and he was found to have a right bundle-branch block with EKG. We were asked to see him to ensure that he had stable cardiac status in case further intervention was indicated. He has had no previous cardiac history that he is aware of. He has no chest pain or shortness of breath. 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 He has no history of hypertension, diabetes, hypercholesterolemia, family history of heart disease, or tobacco abuse. Otherwise, his past medical history is unremarkable. He had presented with the nausea and vomiting for several days and was found to have nephrolithiasis and urinary tract infection. At this time, he is feeling better. The day is the first day he has been able to eat. PAST MEDICAL HISTORY: Otherwise, unremarkable. PAST SURGICAL HISTORY: Unremarkable. FAMILY HISTORY: Noncontributory. There is no evidence of previous cardiac history. SOCIAL HISTORY: He works doing [employer]. He drinks occasional beers or drinks two beers every day. He has no tobacco abuse or other illegal drug use. REVIEW OF SYSTEMS: A 12-point review of systems unremarkable except was noted in the history of present illness. He mainly complained of the left lower quadrant groin pain due to the nephrolithiasis. ALLERGIES: NONE. PRESENT MEDICATIONS: Prior to admission were none. PHYSICAL EXAMINATION: GENERAL: Reveals a well-developed, well-nourished gentleman, who is in no acute distress. He is alert. He is oriented. VITAL SIGNS: Blood pressure is 97/63, earlier it was 130/83. He is afebrile. Respiratory rate is 20 and heart rate 73 and regular. HEENT: Shows the head to be normocephalic and atraumatic. Carotid pulses are present. There were no bruits. CHEST: Clear to auscultation without rales, rhonchi, or wheezing. CARDIOVASCULAR: Reveals a regular rate and rhythm. Normal S1 and S2. There is no significant murmurs, heaves, thrills, bruits, or rubs. ABDOMEN: Soft and nontender. Positive bowel sounds are present. EXTREMITIES: Showed no clubbing, cyanosis, or edema. Pedal pulses are present. All pulses are present and normal. NEUROLOGIC: There are no gross focal motor deficits. LABORATORY DATA: Shows a WBC of 7.8, hemoglobin was 12, platelet count was 91,000, and hematocrit was 36.1. Potassium was 3.3, BUN was 52, creatinine 2.4, and blood sugar was 144. EKG shows a normal sinus rhythm with an incomplete right bundle-branch block. Urinalysis did show 3+ bacteria with 2+ blood. His INR is 1.4. IMPRESSION AND PLAN: 1. A 53-year-old male with urinary tract infection and a large proximal ureteral calculi and also the urinary tract infection with leukocytosis, which appears to be improving. This is being dealt with by the urologist. 2. Possible new onset incomplete right bundle-branch block. The patient has no significant risk factors for coronary artery disease. He has been asymptomatic. This maybe a normal EKG for this gentleman as this can be a normal finding in a certain percentage of the population, but for completeness, we can always advice the patient to undergo some type of stress testing. He is unable to walk on a treadmill due to his recent urinary tract infection and discomfort. Certainly can try to perform a nuclear study to rule out evidence of coronary artery disease. We will schedule for an echocardiogram to ensure he has no evidence of left ventricular systolic function or other abnormalities. 3. Abnormality noted on the chest x-ray, which was an indeterminate density in the left paramediastinal location. This will be dealt with also by the Hospital Service. 4. Thrombocytopenia, which may be due to his recent urinary tract infection or possible sepsis. Thank you very much. At this time, we will continue to follow the patient with you. We will schedule stress testing and echocardiogram, but otherwise the patient has no risk factors for coronary artery disease and appears to be doing very well. 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 Therefore, unable to get the stress test prior to him proceeding. Job ID: [id number]
[2019-09-19] MEDS: HumaLOG 300 UNITS/3 ML VIAL SC PRN (17:27)
[2019-09-19] MEDS: Famotidine/PF 20 mg/2ml Vial SLOW IVP SCH (21:39)
[2019-09-20] MEDS: cefTRIAXone\\ROCEPHIN 2 GM in Sodium Chloride 0.9% 100 ML IVPB SCH (01:08)
[2019-09-20] MEDS: Sodium Chloride 0.9% 1,000 ML IV SCH ×5 (01:08→20:36)
[2019-09-20] MEDS ORDERED: Vancomycin HCl 750 MG in Sodium Chloride 0.9% 250 ML 250 ML IVPB SCH (03:00)
--- NOTE | 2019-09-20 06:53 | PDOC.FM ---
- Subjective Subjective: Pt c/o hiccups that are causing some agitation for him. N/V improved today. C/o R flank pain. good urine outpt. no overnight events. - Objective MAR Reviewed: Yes Vital Signs & Weight: Vital Signs (12 hours) Temp Pulse Resp BP Pulse Ox 09/20/19 04:00 97.8 F 80 18 111/72 97 09/19/19 20:00 97.8 F 80 18 111/72 97 09/19/19 19:56 97.8 F 80 18 111/72 97 Weight Admit Weight 85.82 kg Weight 85.82 kg Most Recent Monitor Data Heart Rate from ECG 83 NIBP 105/64 NIBP BP-Mean 77 Respiration from ECG 16 SpO2 96 I&O: 09/18/19 09/19/19 09/20/19 06:59 06:59 06:59 Intake Total 769 1300 3800 Output Total 750 3500 1650 Balance 19 -2200 2150 Result Diagrams: 09/19/19 04:02 09/19/19 04:02 Phys Exam - Physical Examination Constitutional: NAD hiccups present HEENT: moist MMs, sclera anicteric Neck: no nodes, full ROM Respiratory: no wheezing, no rales, no rhonchi, clear to auscultation bilateral Cardiovascular: RRR, no significant murmur, no rub Gastrointestinal: soft, non-tender, no distention R CVA Tenderness Musculoskeletal: no edema, pulses present Neurological: non-focal, moves all 4 limbs Psychiatric: normal affect, A&O x 3 Skin: no rash, normal turgor, cap refill <2 seconds Dx/Plan (1) Sepsis Code(s): A41.9 - SEPSIS, UNSPECIFIED ORGANISM Status: Acute Qualifiers: Severe sepsis acute organ dysfunction type: acute renal failure (2) Pyelonephritis Code(s): N12 - TUBULO-INTERSTITIAL NEPHRITIS, NOT SPCF ACUTE OR CHRONIC Status: Acute (3) Hydronephrosis due to obstruction of ureter Code(s): N13.2 - HYDRONEPHROSIS WITH RENAL AND URETERAL CALCULOUS OBSTRUCTION Status: Acute (4) Acute kidney failure Status: Acute (5) Incomplete RBBB Code(s): I45.10 - UNSPECIFIED RIGHT BUNDLE-BRANCH BLOCK Status: Acute (6) Nephrolithiasis Status: Acute - Plan Plan: Pt is a 53 yo without primary care follow up/no known PMH who presents for sepsis 2/2 nephrolithiasis: # Sepsis 2/2 complicated UTI/pyelonephritis, with bacteremia - fever, tachycardia - blood ccx: enterobacter aerogenes, resistant to cefoxitin. Sensitive to ceftriaxone. - Sharon consulted, appreciate recommendations. HIV/RPR non-reactive - Cards consulted: recommending stress and echo. #Pyelonephritis - R CVA T - Evidence of large obstructing stone on R UPJ, possible septic stone. - Blood ccx enterobacter aerogenes, resistant to cefoxitin. Sensitive to ceftriaxone. - Continue IVF and rocephin. # Nephrolithiasis - Right UPJ calculis 12 X 7 mm size - Urology consulted, appreciate recommendations: Started allopurinol as uric acid level 8.6 - Stent placed in R ureter 09/18/19. - Leaving stone while treating bacteremia, will f/u out pt for possible lithotripsy procedure for removal of stone. Per Urology # LINDA, improving with stent placement and IVF CT abdomen revealed a stone obstructing R kidney cause hydronephrosis, LINDA likely from septic stone. Creatinine 3.53-> 2.4 BUN 58 - tylenol prn pain - Urology consulted, Stent placed in R ureter. 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 Once renal function improves will order CT w contrast of chest. # L Paramediastinal Density - needs follow up with CT scan when kidneys can handle contrast # Elevated BG, new diagnosis of DM II - a1c 6.8, new diagnosis of DM - Will discuss addition of metformin if pt's LINDA resolves before admission. - ACHS accuchecks, mild SSI # Needs PCP Diet: NPO Fluids: NS 150 mls/hr VTE SCDs Code: Full Dispo: > 2 day stay, medical
--- NOTE | 2019-09-20 08:05 | PRG ---
DATE OF SERVICE: 09/20/2019 SUBJECTIVE: The patient without complaints. Family at bedside. OBJECTIVE: VITAL SIGNS: Stable. He is afebrile. He has been afebrile for more than 36 hours. I's and O's; 3800 in, 1650 out. ABDOMEN: Soft, nontender, nondistended. No CVA tenderness. LABORATORY STUDIES: White count yesterday is normal at 7 platelet 91, presented with bandemia of 22, yesterday it was 15. Morning labs are pending. Blood culture 2/2 sets positive for Enterobacter, sensitive to quinolones and cephalosporins, except cefoxitin, currently on Rocephin. IMPRESSION AND PLAN: 1. Mr. Corona is a 53-year-old male, presented with acute renal insufficiency multifactorial, history of fever, bandemia, found to have a 1.2 cm x 1.6 x 7 mm right ureteropelvic junction proximal ureteral stone, postoperative day 2 cystoscopy, right ureteral stent placement. The patient is hemodynamically stable. 2. History of right bundle-branch block. Cardiology assessment, echocardiogram in progress. 3. Infectious Disease consult reviewed and appreciated. Syphilis, human immunodeficiency virus negative. Antibiotic regimen per Infectious Disease. recommendations are that he will undergo complete workup as above. He will need to be discharged with appropriate antibiotic therapy per Infectious Disease. As it is sensitive to quinolones, from my perspective, Levaquin is preferable. In a few weeks, when repeat urine culture is negative, he will undergo ureteroscopy, laser lithotripsy as an outpatient. Do not discharge the patient without appointment, he is high risk for noncompliance and flight risk. addendum. Stress test obtained by cardiology demonstrating unremarkable findings. Morning labs demonstrates creatinine improved to 1.8. From my perspective patient could be discharged with appropriate antibiotic therapy. Would recommend Levaquin 500 mg one by mouth daily minimum 2 weeks due to positive culture. Appointment in chart close follow-up February 21 at 1 PM. Please discharge patient with antibiotics, Flomax, allopurinol due to elevated uric acid. Job ID: [id number] [facility]
[2019-09-20 08:31] LABS: Anion Gap 10 mmol/L (10-20); BUN (Urea Nitrogen) 45 mg/dL (8.4-25.7); Calc. Creatinine Clearance 55 mL/min (70-130); Calcium 7.2 mg/dL (7.8-10.44); Carbon Dioxide 19 mmol/L (22-29); Chloride 106 mmol/L (98-107); Estimated GFR-MDRD 38; Glucose 143 mg/dL (70-105); Potassium 3.3 mmol/L (3.5-5.1); Sodium 132 mmol/L (136-145)
--- NOTE | 2019-09-20 11:22 | PRG ---
DATE OF SERVICE: 09/20/2019 SUBJECTIVE: Mr. Eugene is currently down for a stress Myoview in order to get cardiac clearance for possibly upcoming surgery. He remains improved and is afebrile. OBJECTIVE: VITAL SIGNS: Blood pressure is 100/62, room air pulse ox is 96%. LABORATORY DATA: His white count is dropped to 7800. BUN 45, creatinine 1.85. We will continue to follow with the Urology Service. Job ID: [id number]
[2019-09-20] MEDS: Tamsulosin HCl 0.4 MG CAP PO SCH (12:07)
[2019-09-20] MEDS: Docusate 100 MG CAP PO SCH ×2 (12:08→20:36)
[2019-09-20] MEDS: Allopurinol 100 MG TAB PO SCH (12:08)
--- NOTE | 2019-09-20 12:31 | NM ---
CARDIAC SPECT: HISTORY: Preoperative evaluation. TECHNIQUE: A myocardial perfusion scan was performed using the single Isotope one day protocol with technetium 9 9m sestamibi and 10 millicuries was injected intravenously for the rest exam followed by 32 millicuri es for the stress study. Pharmacologic stress with adenosine was monitored and interpreted by Dr. Col su. FINDINGS: Homogeneous tracer distribution is seen in the myocardial segments on stress and rest images without fixed or reversible defects. Gated SPECT LVEF 69%. Wall motion exam normal. IMPRESSION: Normal myocardial perfusion scan. POS: TPC
--- NOTE | 2019-09-20 13:23 | PDOC.CPN ---
- Subjective Date: 09/20/19 Time: 13:24 Interval history: The pt seen and examined. No overnight events. No cardiac complaints, except SOB with hiccuping with O2 Sat 96-98% with RA. Communicated via interceptor system - Objective Allergies/Adverse Reactions: Allergies Allergy/AdvReac Type Severity Reaction Status Date / Time No Known Allergies Allergy Verified 09/18/19 01:29 Visit Medications: Current Medications Acetaminophen (Tylenol) 650 mg PO Q4H PRN PRN Reason: Headache/Fever/Mild Pain (1-3) Last Admin: 09/19/19 01:42 Dose: 650 mg Hydrocodone Bitart/Acetaminophen ([place] 5/325) 1 tab PO Q4H PRN PRN Reason: Moderate Pain (4-6) Hydrocodone Bitart/Acetaminophen ([place] 5/325) 2 tab PO Q4H PRN PRN Reason: Severe Pain (7-10) Allopurinol (Zyloprim) 200 mg PO DAILY [facility] Last Admin: 09/20/19 12:08 Dose: 200 mg Bisacodyl (Dulcolax) 10 mg [place] DAILYPRN PRN PRN Reason: Constipation Dextrose/Water (Dextrose 50%) 25 gm SLOW IVP PRN PRN PRN Reason: Hypoglycemia Docusate Sodium (Colace) 100 mg PO BID [facility] Last Admin: 09/20/19 12:08 Dose: 100 mg Famotidine (Pepcid) 20 mg SLOW IVP QPM [facility] Last Admin: 09/19/19 21:39 Dose: 20 mg Glucagon (Glucagon) 1 mg IM PRN PRN PRN Reason: Hypoglycemia Ceftriaxone Sodium 2 gm/ (Sodium Chloride) 100 mls @ 200 mls/hr IVPB Q24HR [facility] Last Admin: 09/20/19 01:08 Dose: 100 mls Sodium Chloride (Normal Saline 0.9%) 1,000 mls @ 150 mls/hr IV .Q6H40M [facility] Last Admin: 09/20/19 12:08 Dose: 1,000 mls Dextrose/Water (D5w) 1,000 mls @ 0 mls/hr IV .Q0M PRN PRN Reason: Hypoglycemia Levofloxacin 500 mg/ Device 100 mls @ 100 mls/hr IVPB ONCALL-OR [facility] Insulin Human Lispro (Humalog) 0 units SC .MILD SLIDING SCALE PRN PRN Reason: Mild Correctional Scale Last Admin: 09/19/19 17:27 Dose: 3 unit Insulin Human Lispro (Humalog) 0 units SC .BEDTIME SLIDING SC PRN PRN Reason: Bedtime Correctional Scale Morphine Sulfate (Morphine) 2 mg SLOW IVP Q2H PRN PRN Reason: Moderate Pain (4-6) Morphine Sulfate (Morphine) 4 mg SLOW IVP Q2H PRN PRN Reason: Severe Pain (7-10) Ondansetron HCl (Zofran) 4 mg IVP Q6H PRN PRN Reason: Nausea/Vomiting Last Admin: 09/18/19 23:52 Dose: 4 mg Phenazopyridine HCl (Azo Standard) 195 mg PO Q8H PRN PRN Reason: Dysuria Potassium Chloride (K-Dur) 40 meq PO ONE GILDA Sodium Chloride (Flush - Normal Saline) 10 ml IVF PRN PRN PRN Reason: Saline Flush Tamsulosin HCl (Flomax) 0.4 mg PO DAILY GILDA Last Admin: 09/20/19 12:07 Dose: 0.4 mg Vital Signs & Weight: Vital Signs Temp Pulse Resp BP Pulse Ox 09/20/19 08:00 98.0 F 66 20 99/62 96 09/20/19 04:00 97.8 F 80 18 111/72 97 Admit Weight 189 lb 3.2 oz Weight 189 lb 3.2 oz - Physical Exam General: alert & oriented x3 HEENT: mucus membranes moist Neck: supple neck Cardiac: regular rate and rhythm Lungs: clear to auscultation Musculoskeletal: normal range of motion - Labs Result Diagrams: 09/19/19 04:02 09/20/19 07:59 - Assessment/Plan Assessment/Plan: 1. New onset RBBB - stress test and Echo were done and waiting for the results 2. Sepsis 2/2 complicated UTI/pyelonephritis, with bacteremia 3. LINDA - improving; on IV fluid 4. HTN - stable 5. DM type 2 with Hgb A1c 6.8 6. HLD MAR reviewed Pt. 's echo : normal, EF: 60-65%. No valvular disease. Stress test: no ischemia. NO CONTRAINDICATION TO SURGERY OR ANESTHESIA. Cardiac status stable. I will sign off. Please consult again if any cardiac issues. thank you. ludy
[2019-09-20] MEDS ORDERED: Potassium Chloride 20 MEQ TAB PO SCH (13:30)
[2019-09-20] MEDS: HumaLOG 300 UNITS/3 ML VIAL SC PRN ×2 (13:41→18:00)
[2019-09-20] MEDS ORDERED: ADENOSINE 60 MG/20 ML VIAL ONE (16:07)
[2019-09-20] MEDS ORDERED: chlorproMAZINE HCl 25 MG TAB PO PRN (17:27)
[2019-09-20] MEDS: Potassium Citrate 10 MEQ TAB PO SCH (18:00)
[2019-09-20] MEDS: Famotidine/PF 20 mg/2ml Vial SLOW IVP SCH (20:36)
[2019-09-21] MEDS: cefTRIAXone\\ROCEPHIN 2 GM in Sodium Chloride 0.9% 100 ML IVPB SCH (00:08)
[2019-09-21] MEDS: Sodium Chloride 0.9% 1,000 ML IV SCH ×2 (05:47→12:22)
[2019-09-21] MEDS ORDERED: Albuterol Sulfate 2.5 mg/3 ml Neb NEB PRN (06:38)
[2019-09-21 06:51] LABS: Anion Gap 12 mmol/L (10-20); BUN (Urea Nitrogen) 38 mg/dL (8.4-25.7); Calc. Creatinine Clearance 65 mL/min (70-130); Carbon Dioxide 17 mmol/L (22-29); Chloride 111 mmol/L (98-107); Estimated GFR-MDRD 46; Glucose 147 mg/dL (70-105); Potassium 3.5 mmol/L (3.5-5.1); Sodium 136 mmol/L (136-145)
--- NOTE | 2019-09-21 07:08 | PDOC.FM ---
- Subjective Subjective: Pt c/o slight sob. denies chest pain or flank pain today. No acute overnight events. - Objective MAR Reviewed: Yes Vital Signs & Weight: Vital Signs (12 hours) Temp Pulse Resp BP Pulse Ox 09/21/19 04:00 98.7 F 66 20 134/81 98 09/21/19 00:00 97.7 F 75 20 108/70 98 09/20/19 20:00 98.7 F 87 20 119/78 97 Weight Admit Weight 85.82 kg Weight 85.82 kg Most Recent Monitor Data Heart Rate from ECG 83 NIBP 105/64 NIBP BP-Mean 77 Respiration from ECG 16 SpO2 96 I&O: 09/20/19 09/21/19 09/22/19 06:59 06:59 06:59 Intake Total 3800 3950 Output Total 1650 Balance 2150 3950 Result Diagrams: 09/19/19 04:02 09/21/19 06:07 Phys Exam - Physical Examination Constitutional: NAD HEENT: moist MMs, sclera anicteric Neck: no JVD, supple, full ROM Respiratory: no wheezing, no rales, no rhonchi, clear to auscultation bilateral Cardiovascular: RRR, no significant murmur, no rub Gastrointestinal: soft, non-tender, no distention, positive bowel sounds Musculoskeletal: no edema, pulses present Neurological: non-focal, moves all 4 limbs Psychiatric: normal affect, A&O x 3 Skin: no rash, cap refill <2 seconds Dx/Plan (1) Sepsis Code(s): A41.9 - SEPSIS, UNSPECIFIED ORGANISM Status: Acute Qualifiers: Severe sepsis acute organ dysfunction type: acute renal failure (2) Pyelonephritis Code(s): N12 - TUBULO-INTERSTITIAL NEPHRITIS, NOT SPCF ACUTE OR CHRONIC Status: Acute (3) Hydronephrosis due to obstruction of ureter Code(s): N13.2 - HYDRONEPHROSIS WITH RENAL AND URETERAL CALCULOUS OBSTRUCTION Status: Acute (4) Acute kidney failure Status: Acute (5) Incomplete RBBB Code(s): I45.10 - UNSPECIFIED RIGHT BUNDLE-BRANCH BLOCK Status: Acute (6) Nephrolithiasis Status: Acute - Plan Plan: Pt is a 53 yo without primary care follow up/no known PMH who presents for sepsis 2/2 nephrolithiasis: # Sepsis 2/2 complicated UTI/pyelonephritis, with bacteremia - fever, tachycardia - blood ccx: enterobacter aerogenes, resistant to cefoxitin. Sensitive to ceftriaxone. - Sharon consulted, appreciate recommendations. HIV/RPR non-reactive - Cards consulted: recommending stress and echo. Stress showed nml cardiac perfusion. echo 60-65% EF. Cleared for surgery from cardiac perspective. - Urology recommending at least 2 weeks of levaquin therapy PO and f/u ureterscopy for lithotripsy of stone in a few weeks. #Pyelonephritis - R CVA T - Evidence of large obstructing stone on R UPJ, possible septic stone. - Blood ccx enterobacter aerogenes, resistant to cefoxitin. Sensitive to ceftriaxone. - Continue IVF and rocephin. Transition to PO upon discharge. # Nephrolithiasis - Right UPJ calculis 12 X 7 mm size - Urology consulted, appreciate recommendations: Started allopurinol as uric acid level 8.6. started flomax. - Stent placed in R ureter 09/18/19. - Leaving stone while treating bacteremia, will f/u out pt for possible lithotripsy procedure for removal of stone. Per Urology # LINDA, improving with stent placement and IVF CT abdomen revealed a stone obstructing R kidney cause hydronephrosis, LINDA likely from septic stone. Creatinine 3.53-> 2.4 -> BUN 58 - tylenol prn pain - Urology consulted, Stent placed in R ureter. - Fluids 150 mls/hr - FENa: 0.3%, community health program representative of pre-renal, most likely 2/2 to sepsis # Hyponatremia, improved. 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 Once renal function improves will order CT w contrast of chest. - will need follow up with pulmonolgy out pt for repeat chest CT with contrast and evaluation. # L Paramediastinal Density - needs follow up with CT scan when kidneys can handle contrast # Elevated BG, new diagnosis of DM II - a1c 6.8, new diagnosis of DM - Will discuss addition of metformin if pt's LINDA resolves before admission. - ACHS accuchecks, mild SSI # Needs PCP Diet: NPO Fluids: NS 150 mls/hr VTE SCDs Code: Full Dispo: > 2 day stay, medical Addendum - Attending - Attending Attestation Date/Time: 09/21/19 1100 I personally evaluated the patient and discussed the management with Dr. Morrison I agree with the History, Examination, Assessment and Plan documented above with any addition or exceptions noted below. SSO using diplomatic interpreter/translator discussed care plan at length with patient and family and need f/u Monday with Urology as scheduled. Would not start metformin until Renal function improved he may need low dose sulfonylurea short term to control his BS. He should be stable for dismissal later today with appropriate outpt follow up.
[2019-09-21] MEDS: Allopurinol 100 MG TAB PO SCH (08:08)
[2019-09-21] MEDS: Potassium Citrate 10 MEQ TAB PO SCH ×2 (08:08→12:20)
[2019-09-21] MEDS: Tamsulosin HCl 0.4 MG CAP PO SCH (08:09)
[2019-09-21] MEDS: Docusate 100 MG CAP PO SCH (08:09)
[2019-09-21] MEDS: HumaLOG 300 UNITS/3 ML VIAL SC PRN (12:20)
[2019-09-21 14:22] VITALS: BP 151/88; TEMP 98.5
--- NOTE | 2019-09-23 13:02 | DIS ---
DATE OF ADMISSION: 09/17/2019 DATE OF DISCHARGE: 09/21/2019 resident Kacy Morrison DO Admitting Attending: Dr. Kellogg Discharge Attending: Dr. Osborn CONSULTS: Case Management; Cardiology, Dr. Asbhy; Infectious Disease, Dr. Herrera; Urology, Dr. Vega. PROCEDURES: The patient underwent a cystoscopy with right ureteroscopy and stent placement on the right ureter on 09/[address] Vega. The patient also underwent a stress test which showed normal myocardial perfusion on 09/20. The patient had an echo on 09/20 with an EF of 60% to 65%. Normal echo findings. DIAGNOSES: 1. Infected sepsis secondary to complicated urinary tract infection/ pyelonephritis with bacteremia. 2. Pyelonephritis. 3. Nephrolithiasis. 4. Acute kidney injury. 5. Hyponatremia. 6. Left paramediastinal density. 7. Elevated blood glucose. New diagnosis of diabetes mellitus type 2. DISCHARGE MEDICATIONS: 1. Allopurinol 200 mg p.o. daily. 2. Tamsulosin 0.4 mg p.o. daily. 3. Levaquin 500 mg p.o. daily, 30 tabs given. Instructed to take this medication until 3 days after the lithotripsy for removal of the stone by Urology as this is recommended by Dr. Herrera, Infectious Disease doctor. HISTORY OF PRESENT ILLNESS/HOSPITAL COURSE: Mr. Oswaldo Corona is a 53-year -old male, with no known diagnoses, comes into the emergency department because of increased urinary frequency and fever. He was found to have a very large right ureteral stone at the UPJ measuring 12 mm x 7 mm in size, obstructing the ureter and causing hydronephrosis to the right kidney. Urology was consulted, Dr. Vega, who took the patient for a ureterocystoscopy and placed a stent in the right ureter. The stone was very large and unable to be removed at that time. She is recommending that his sepsis be treated as his blood cultures grew out Enterobacter aerogenes resistant to cefoxitin and sensitive to all others. She is recommending p.o. Levaquin. Dr. Herrera, Infectious Disease doctor is recommending that the p.o. Levaquin be continued daily up until 3 days after the stone is removed. I discharged the patient with 30 tablets to hold him over to his appointment with Dr. Vega in a few weeks and instructed him to take the medication 3 days post stone removal. It was also recommended that he continue Flomax and allopurinol therapy as his uric acid was 8.6. On chest x-ray, the patient was found to have a paramediastinal mass on admission to the emergency department. He did not know about this mass prior to admission and he will need followup in the outpatient setting with Pulmonology and a repeat CT scan with contrast. He was unable to receive any contrast while in hospital because he had acute kidney injury coming in with a creatinine of 3.53, this downtrended to 1.57 with a creatinine clearance of 30 on the day of discharge, continuing to better each day. I encouraged the patient to continue oral hydration therapy post discharge with at least 3 L of water a day to reduce the incidence of stones and to also treat the LINDA. The patient also has a new diagnosis of diabetes mellitus type 2 with A1c of 6.7. His blood sugars were very well managed while here and only required 2 units of insulin 1 day on this mild sliding scale. The patient understood that he needs to follow up on: 1. By getting a primary care physician to treat his diabetes and to manage his outpatient followup for Pulmonology and mediastinal mass. 2. To follow up with Dr. Vega for the stone that will need procedures to be removed. He also understood to take the Levaquin daily. DISPOSITION: The patient was stable upon discharge. DISCHARGE INSTRUCTIONS: 1. Location: To home. 2. Diet: Consistent carb, renal low-protein. 3. Activity: As tolerated. 4. Followup: With primary care in [address] Vega on Monday has appointment setup. Job ID: [id number] [facility]
== END 2019-09-21 14:29 | disposition home or self-care (01) | DRG 853 ==
LOC: ERS 19:37 → IMCU/EMU 22:41 → T4-A 09-18 18:04
PROVIDERS: ADMIT Urology; ATTEND Urology
PROC: 0T768DZ Dilation of Right Ureter with Intraluminal Device, Via Natural or Artificial Opening Endoscopic (ICD-10-PCS; principal; 2019-09-18)
PROC: BT1DZZZ Fluoroscopy of Right Kidney, Ureter and Bladder (ICD-10-PCS; 2019-09-18)
DX: A41.51 Sepsis due to Escherichia coli [E. coli] (principal); J98.59 Other diseases of mediastinum, not elsewhere classified; N13.6 Pyonephrosis; N17.9 Acute kidney failure, unspecified; E87.1 Hypo-osmolality and hyponatremia; E11.65 Type 2 diabetes mellitus with hyperglycemia; R65.20 Severe sepsis without septic shock; I45.10 Unspecified right bundle-branch block
CPT/HCPCS: 36415; 36416; 71045; 74018; 74176; 74420; 78452; 80048; 80053; 80202; 81003; 81015; 82570; 83036; 83605; 83935; 84300; 84550; 85025; 85610; 85730; 86780; 87040; 87077; 87149; 87186; 87389; 93005; 93017; 93306; 96360; 96361; 96365; 96375; A9500; C1758; C1769; J0153; J0696; J1956; J2001; J2405; J2704; J3010; J3490; Q0161; S0028

== ENCOUNTER 2019-10-02 07:49 | Outpatient (CLI) | payer SELFPAY ==
[2019-10-02 10:52] LABS: Mean Corpuscular HGB CONC 33.6 g/dL (32.0-36.0); Mean Corpuscular Hemoglobin 30.8 pg (27.0-31.0); Mean Corpuscular Volume 91.7 fL (78.0-98.0); Mean Platelet Volume 7.1 fL (7.4-10.4); Platelet Count 240 thou/uL (130-400); Red Blood Cell (RBC) Count 4.21 mill/uL (4.70-6.10); White Blood Cell (WBC) Count 7.9 thou/uL (4.8-10.8)
[2019-10-02 10:58] LABS: INR-International Normal Ratio 1.1; Prothrombin Time 13.8 SEC (12.0-14.7)
[2019-10-02 11:05] LABS: Bacteria/HPF None Seen HPF (None Seen); Bilirubin Negative (Negative); Blood, Urine 1+ (Negative); Clarity Clear (Clear); Glucose, Urine (Dipstick) 200 mg/dL (Negative); Leukocyte 500 Leu/uL (Negative); Nitrite Negative (Negative); Protein, Urine (Dipstick) 30 mg/dL (Neg-Trace); RBC/HPF 0-3 HPF (0-3); Squamous Epithelial 0-3 HPF (0-3); Urobilinogen Normal mg/dL (Less than 2); WBC/HPF Greater than 50 HPF (0-3)
[2019-10-02 11:06] LABS: Anion Gap 12 mmol/L (10-20); BUN (Urea Nitrogen) 20 mg/dL (8.4-25.7); Calc. Creatinine Clearance 0 mL/min (70-130); Carbon Dioxide 25 mmol/L (22-29); Chloride 101 mmol/L (98-107); Estimated GFR-MDRD 52; Glucose 210 mg/dL (70-105); Potassium 4.3 mmol/L (3.5-5.1); Sodium 134 mmol/L (136-145)
== END 2019-10-02 07:50 | disposition home or self-care (01) ==
LOC: LABBT 07:49
PROVIDERS: ATTEND Urology
DX: Z01.818 Encounter for other preprocedural examination (principal); N20.0 Calculus of kidney
CPT/HCPCS: 80048; 81001; 85027; 85610; 85730; 87086; 93005; 93010

== ENCOUNTER 2019-10-09 08:22 | Day surgery (SDC) | payer OTHER, SELFPAY ==
[2019-10-02 10:02] VITALS: BMI 26.6
[2019-10-09] MEDS ORDERED: Ondansetron PF 4 MG/2 ML Vial ONE (09:00)
[2019-10-09] MEDS ORDERED: Fentanyl 100 MCG/2 ML VIAL ONE (09:00)
[2019-10-09] MEDS ORDERED: Piperacillin/Tazobactam 3.375 GM in Sodium Chloride 0.9% 100 ML IVPB SCH (09:15)
--- NOTE | 2019-10-09 09:26 | RAD ---
EXAM: Single view of the abdomen HISTORY: Right ureteral calcification COMPARISON: CT abdomen/pelvis 09/17/2019 FINDINGS: Single view of the abdomen shows a nonspecific, nonobstructive bowel gas pattern. A right-s ided ureteral stent appears in good position. No suspicious calcifications are seen. The bones are unremarkable. IMPRESSION: Appropriate position of right ureteral stent. No residual urinary collecting system calcu li are seen.
[2019-10-09] MEDS ORDERED: Rocuronium Bromide 10 MG/ML (10ML VIAL) ONE (09:58)
[2019-10-09] MEDS ORDERED: Piperacillin/Tazobactam 3.375 GM VIAL ONE (09:58)
[2019-10-09] MEDS ORDERED: Sodium Chloride 0.9% 100 ML ONE (09:58)
[2019-10-09] MEDS ORDERED: Dexamethasone 20 MG/5 ML VIAL ONE (09:58)
[2019-10-09] MEDS ORDERED: Glycopyrrolate 0.2 MG/ML 5 ML SYRINGE ONE (09:58)
[2019-10-09] MEDS ORDERED: PROPOFOL 200 MG/20 ML VIAL ONE (09:58)
[2019-10-09] MEDS ORDERED: Ketorolac Tromethamine 30 MG/ML VIAL ONE (09:58)
[2019-10-09] MEDS ORDERED: PHENYLEPHRINE-NS 100 MCG/ML 10 ML SYRINGE ONE (09:58)
[2019-10-09] MEDS ORDERED: Lidocaine 1% PF 5 ML VIAL ONE (09:58)
[2019-10-09] MEDS ORDERED: Iothalamate Meglumine 60% 50 ML VIAL FS ONE (12:05)
[2019-10-09] MEDS ORDERED: Ondansetron HCl/PF 4 MG/2 ML Vial IVP PRN (13:25)
[2019-10-09] MEDS ORDERED: Ketorolac Tromethamine 30 MG/ML VIAL IVP PRN (13:25)
[2019-10-09] MEDS ORDERED: Promethazine HCl 25 MG/ML VIAL IM PRN (13:25)
[2019-10-09] MEDS ORDERED: HYDROmorphone 2 MG/ML VIAL SLOW IVP PRN (13:25)
[2019-10-09] MEDS ORDERED: Promethazine HCl 25 MG/ML VIAL SLOW IVP PRN (13:25)
[2019-10-09] MEDS ORDERED: Meperidine HCl/PF 25 MG/ML VIAL SLOW IVP PRN (13:25)
--- NOTE | 2019-10-09 13:52 | RAD ---
EXAM: Retrograde IVP HISTORY: Stent placement. History of ureteral calcification COMPARISON: 09/18/2019 FINDINGS/IMPRESSION: Limited intraoperative fluoroscopic views of the retrograde IVP were submitted f or interpretation. The previous right ureteral stent appears to have been exchanged with a new stent in good position. There is no evidence of hydronephrosis. No obvious filling defects are seen.
[2019-10-09] MEDS ORDERED: Phenazopyridine HCl 97.5 MG TABLET ONE (14:20)
--- NOTE | 2019-10-09 18:20 | OP ---
DATE OF PROCEDURE: 10/09/2019 PREOPERATIVE DIAGNOSIS: A 53-year-old male with history of 1.6 cm x 1.2 cm ureteropelvic junction stone with a history of Enterobacter urinary tract infection. POSTOPERATIVE DIAGNOSIS: A 53-year-old male with history of 1.6 cm x 1.2 cm ureteropelvic junction stone with a history of Enterobacter urinary tract infection. PROCEDURES PERFORMED: Cystoscopy, right retrograde pyelogram, 6 x 26 double-J ureteral stent exchange on Dangler, flexible ureteroscopy, pyeloscopy, laser lithotripsy, basket extraction, retrograde pyelogram. Modifier 22 due to large stone burden ANESTHESIA: General. COMPLICATIONS: None apparent. DISPOSITION: Recovery room in stable condition. IV FLUIDS: 1 L. SPECIMEN: None. INDICATIONS FOR PROCEDURE AND HISTORY: Mr. Corona is a 53-year-old male, who presented to the emergency room with history of nausea, vomiting, and chills , and workup demonstrated a right UPJ proximal ureteral calculi, 1.6 x 1.2 cm. His urine pH and Hounsfield unit of the stone suggested uric acid moiety. He has been placed on potassium citrate and allopurinol. He presents today for ureteroscopy and laser lithotripsy. Stone is unable to be visualized on KUB. Risks and complications of the procedure were reviewed with him in detail including, but not limited to bleeding; pain; infection; injury to adjacent organs; urosepsis; ureteral, bladder, or kidney injury; possible stricture formation; possible secondary procedure were reviewed. He desired to proceed. DESCRIPTION OF PROCEDURE: After an informed consent was signed, the patient taken to the operating room and placed in the dorsal lithotomy position with the genital area prepped and draped in the usual surgical sterile fashion. A 21-Sudanese cystoscope was utilized for cystoscopy, which demonstrated normal anterior and posterior urethra. Mild BPH component noted. Bladder was entered, which demonstrated the UOs well away from the bladder neck, and a previously placed ureteral stent was removed to the level of the meatus, and a 0.035 Sensor wire was placed through the stent to the right upper pole. Stent was then completely removed, and a dual-lumen Access sheath was placed with a retrograde pyelogram demonstrated a filling defect in the renal pelvis consistent with a proximal ureteral stone. A second safety wire was then placed into the right upper pole, Super Stiff. We attempted to pass a 13/15-Sudanese sheath; however, there was some resistance at the distal ureter; therefore, I did not further ensue and proceed. An 11/13-Sudanese x 46 cm navigator, however, did pass without significant issues. A flexible ureteroscope was then advanced over the working wire, and we surveyed the collecting system, which demonstrated a stone that had migrated from the proximal ureter to the mid pole. Using 240-micron ball-tip laser fiber at an energy of 1.6 joules at dusting setting, we laser lithotripsied the stone into multiple tiny pieces. The stone was soft, we made good progress. At the end of the procedure , there were only dustlike stone debris. I did try to basket some of these, and they were minute. They were too small to basket and too small to laser given they were dustlike debris. We surveyed the collecting system and the ureter, which demonstrated no evidence of collecting system injury or mucosal injury or residual stone in the ureter of concern. A 6 x 26 double-J ureteral stent was passed over the safety wire and placed with the distal tail in situ. All wires were removed. Bladder was completely emptied, and the stent string was taped to the patient's penis. He was discharged with Levaquin for 8 days, Azo p.r.n., Flomax 1 p.o. daily, tramadol #30 one to two p.o. q.6 hours p.r.n. pain. He will see me next for stent pull on Violet. Job ID: [id number] [facility]
== END 2019-10-09 16:00 | disposition home or self-care (01) ==
LOC: SDC 08:22
PROVIDERS: ATTEND Urology
PROC: 0T768DZ Dilation of Right Ureter with Intraluminal Device, Via Natural or Artificial Opening Endoscopic (ICD-10-PCS; principal; 2019-10-09)
PROC: 0TF38ZZ Fragmentation in Right Kidney Pelvis, Via Natural or Artificial Opening Endoscopic (ICD-10-PCS; principal; 2019-10-09)
DX: N20.0 Calculus of kidney (principal); N40.0 Benign prostatic hyperplasia without lower urinary tract symptoms; E11.9 Type 2 diabetes mellitus without complications; I45.10 Unspecified right bundle-branch block; Z79.899 Other long term (current) drug therapy
CPT/HCPCS: 36416; 74018; 74420; C1758; C1769; J1100; J1885; J2001; J2405; J2543; J2704; J3010; J3490

== ENCOUNTER 2020-01-22 11:55 | Outpatient (CLI) | payer OTHER ==
--- NOTE | 2020-01-22 15:28 | ULT ---
RENAL ULTRASOUND: 01/22/20 COMPARISON: None. HISTORY: Right sided kidney stone. COMPARISON: IVP 10/09/[address] abdomen/pelvis 09/17/19. TECHNIQUE: Multiplanar riley scale and color Doppler images were obtained in a renal ultrasound. FINDINGS: The kidneys are normal in echogenicity. There is an echogenic 6 mm region in the right kidney which c ould represent a nonobstructing kidney stone. No echogenic foci are seen in the right kidney. The kid neys measure 7.8 and 11.5 cm in length on the right and left, respectively. Limited visualization of the urinary bladder is unremarkable. IMPRESSION: Possible nonobstructing left renal calcification. POS: EAA
== END 2020-01-22 11:56 | disposition home or self-care (01) ==
LOC: BICULT 11:55
PROVIDERS: ATTEND Urology
DX: N20.1 Calculus of ureter (principal)
CPT/HCPCS: 76770